=== PATIENT | male | born 1950 | race Caucasian/White ===

== ENCOUNTER → 2018-04-15 | Outpatient (CLI) | payer BC | LOC: FIMAGING 16:13 | PROVIDERS: ATTEND Internal Medicine | DX: N28.9 Disorder of kidney and ureter, unspecified (principal) ==

== ENCOUNTER → 2018-07-29 | Outpatient (CLI) | payer BC | LOC: BMCIMAGING 09:13 | PROVIDERS: ATTEND Podiatrist Foot & Ankle Surgery | DX: M13.872 Other specified arthritis, left ankle and foot (principal); M79.89 Other specified soft tissue disorders ==

== ENCOUNTER → 2018-09-24 | Outpatient (CLI) | payer BC | LOC: BMCIMAGING 12:03 | PROVIDERS: ATTEND Internal Medicine Rheumatology | DX: M19.072 Primary osteoarthritis, left ankle and foot (principal); I70.292 Other atherosclerosis of native arteries of extremities, left leg ==

== ENCOUNTER → 2018-10-14 | Outpatient (CLI) | payer BC | LOC: BMCIMAGING 13:47 | PROVIDERS: ATTEND Internal Medicine Rheumatology | DX: M79.672 Pain in left foot (principal) ==